=== PATIENT | male | born 1990 | race Caucasian/White ===

== ENCOUNTER 2022-09-29 18:21 | Emergency (ER) | payer OTHER ==
[2022-09-29 19:20] VITALS: BP 133/78; PULSE 76; RESP 18; TEMP 98; BMI 23.3
[2022-09-29] MEDS ORDERED: KETOROLAC TROMETHAMINE 30 MG/1 ML VIAL IM ONE (19:26)
[2022-09-29] MEDS ORDERED: CYCLOBENZAPRINE HCL 10 MG TABLET (FP) PO ONE (19:27)
[2022-09-29] MEDS ORDERED: KETOROLAC TROMETHAMINE 30 MG/1 ML VIAL ONE (19:32)
== END 2022-09-29 21:40 | disposition home or self-care (01) ==
LOC: FER 18:21
PROC: 3E0233Z Introduction of Anti-inflammatory into Muscle, Percutaneous Approach (ICD-10-PCS; principal; 2022-09-29)
DX: M62.838 Other muscle spasm (principal); M54.2 Cervicalgia; R51.9 Headache, unspecified
CPT/HCPCS: 72125-TC; 99284-25